=== PATIENT | male | born 1970 | race Caucasian/White ===

== ENCOUNTER 2022-04-08 08:54 | Outpatient (CLI) | payer OTHER, SELFPAY ==
[2022-04-08 11:02] LABS: Chloride* 104 mmol/L (96-114); Sodium* 140 mmol/L (135-149)
[2022-04-08 11:03] LABS: Potassium* 4.2 mmol/L (3.6-5.1)
[2022-04-08 11:05] LABS: Carbon Dioxide* 27 mmol/L (20-32); Cholesterol* 226 mg/dL (90-199); Creatinine* 1.1 mg/dL (0.5-1.5); Estimated Glomerular Filt Rate 82 ml/min
[2022-04-08 11:06] LABS: Blood Urea Nitrogen* 23 mg/dL (7-30); Calcium* 9.5 mg/dL (8.4-10.6); Glucose* 89 mg/dL (60-115); HDL Cholesterol* 73 mg/dL (>=40); LDL Cholesterol Calculated 139 mg/dL (<100); Triglycerides* 69 mg/dL (40-149)
[2022-04-08 11:37] LABS: PSA Screen* 3.36 ng/mL (0.10-4.00)
== END 2022-04-08 08:55 | disposition home or self-care (01) ==
PROVIDERS: PCP Family Medicine; Visit Provider Family Medicine
DX: Z00.00 Encounter for general adult medical examination without abnormal findings (principal); I10 Essential (primary) hypertension; Z12.5 Encounter for screening for malignant neoplasm of prostate; Z13.6 Encounter for screening for cardiovascular disorders
CPT/HCPCS: 80048; 80061; 84153

== ENCOUNTER 2023-04-24 09:19 | Outpatient (CLI) | payer BC, SELFPAY | END 2023-04-24 09:20 | disposition home or self-care (01) | PROVIDERS: PCP Family Medicine; Visit Provider Family Medicine | DX: Z00.00 Encounter for general adult medical examination without abnormal findings (principal); I10 Essential (primary) hypertension; Z12.5 Encounter for screening for malignant neoplasm of prostate | CPT/HCPCS: 80048; 80061; 84153 ==